=== PATIENT | male | born 1980 | race Hispanic/Latino ===

== ENCOUNTER 2021-03-17 12:43 | Emergency (ER) | payer OTHER ==
[~2021-03-17] VITALS: Ht 167.6 cm; Wt 79.5 kg
[2021-03-17] MEDS ORDERED: OFLOXACIN0.3 % OS (13:59)
[2021-03-17 14:25] VITALS: BP 149/93
== END 2021-03-17 14:25 | disposition home or self-care (01) ==
LOC: ED 12:43
DX: S05.02XA Injury of conjunctiva and corneal abrasion without foreign body, left eye, initial encounter (principal); I10 Essential (primary) hypertension; E78.5 Hyperlipidemia, unspecified; X58.XXXA Exposure to other specified factors, initial encounter